=== PATIENT | female | born 1975 | race Hispanic/Latino ===

== ENCOUNTER 2020-05-31 06:50 | Day surgery (SDC) | payer BC ==
[2020-05-30 15:24] VITALS: BP 157/76
[2020-05-30 15:24] LABS: BASOPHILS % (AUTO) 0.6 % (0.0-5.0); EOSINOPHILS % (AUTO) 2.6 % (0.0-8.0); HEMATOCRIT 32.1 % (36-48); LYMPHOCYTES % (AUTO) 21.9 % (21.0-51.0); MEAN CORPUSCULAR HEMOGLOBIN 23.7 pg (27.0-33.0); MEAN CORPUSCULAR HGB CONC 30.2 g/dL (32.0-36.0); MEAN CORPUSCULAR VOLUME 78.5 fL (79-99); NEUTROPHILS % (AUTO) 67.7 % (40.0-77.0); PLATELET COUNT (AUTO) 258 K/uL (130-400); RED BLOOD CELL COUNT(AUTO) 4.09 MIL/uL (4.00-5.50); RED CELL DISTRIBUTION WIDTH 18.2 % (11.0-15.5); WHITE BLOOD COUNT (AUTO) 8.2 K/uL (4.8-10.8)
[2020-05-31] VITALS (16 sets, daily range): BP systolic 90–124; BP diastolic 54–75
[~2020-05-31] VITALS: Ht 157.5 cm; Wt 79.1 kg
[~2020-05-31 06:50] MED LIST: CEFAZOLIN SODIUM 1 GM VIAL IVP SCH; FERR-82 PO; LACTATED RINGERS 1000ML 1,000 ML IV SCH; RIVA20TA PO
[2020-05-31] MEDS ORDERED: CALDOLOR 800MG+NS 250ML 250 ML IV SCH (07:15)
[2020-05-31] MEDS ORDERED: ERGO500014 PO ×2 (08:37)
[2020-05-31] MEDS ORDERED: ESCI20TA36 PO ×2 (08:37)
[2020-05-31] MEDS ORDERED: FOLIC ACID PO ×2 (08:37)
[2020-05-31] MEDS ORDERED: LIDOCAINE PF 2% 5ML ABBOJECT ONE (09:05)
[2020-05-31] MEDS ORDERED: DEXAMETHASONE SOD PHOSPHATE 10MG/ML 1ML VIAL ONE (09:05)
[2020-05-31] MEDS ORDERED: SUCCINYLCHOLINE 200MG/10ML SYR ONE (09:05)
[2020-05-31] MEDS ORDERED: GLYCOPYRROLATE 1 MG/5 ML SYRINGE ONE (09:06)
[2020-05-31] MEDS ORDERED: MIDAZOLAM HCL 1 MG/ML 2ML VIAL ONE (09:06)
[2020-05-31] MEDS ORDERED: PROPOFOL 10 MG/ML 20ML VIAL IV ONE (09:06)
[2020-05-31] MEDS ORDERED: ROCURONIUM 10MG/1ML SYR 10 MG/ML ML ONE (09:07)
[2020-05-31] MEDS ORDERED: NEOSTIGMINE 5MG/5ML SYR IV ONE (09:07)
[2020-05-31] MEDS ORDERED: ONDANSETRON HCL 4 MG/2 ML VIAL ONE (09:07)
[2020-05-31] MEDS ORDERED: FENTANYL CITRATE PF 50 MCG/1 ML 2ML VIAL ONE ×2 (09:10→10:13)
[2020-05-31] MEDS ORDERED: ACETAMINOPHEN-CODEINE 300/30MG TAB ONE (12:32)
== END 2020-05-31 12:45 | disposition home or self-care (01) ==
LOC: DAH 06:50
PROVIDERS: ATTEND Obstetrics & Gynecology
DX: N92.1 Excessive and frequent menstruation with irregular cycle (principal); D50.0 Iron deficiency anemia secondary to blood loss (chronic); N81.4 Uterovaginal prolapse, unspecified; E66.9 Obesity, unspecified; Z86.73 Personal history of transient ischemic attack (TIA), and cerebral infarction without residual deficits; Z98.51 Tubal ligation status; Z68.32 Body mass index [BMI] 32.0-32.9, adult
CPT/HCPCS: 36415; 58563; 85025; 86850; 86900; 86901; A4215; A4221; A4222; A4223; A4351; A4355; A4663; A6260; J0330; J0690; J1100; J1741; J2001; J2250; J2405; J2704; J2710; J3010 ×2; J3490; J7030

== ENCOUNTER 2020-06-06 10:25 | Emergency (ER) | payer BC ==
[~2020-06-06 10:25] MED LIST changes: -CEFAZOLIN SODIUM 1 GM VIAL IVP SCH; +ERGO500014 PO; +ESCI20TA36 PO; +FOLIC ACID PO; -LACTATED RINGERS 1000ML 1,000 ML IV SCH
[2020-06-06 11:13] LABS: BASOPHILS % (AUTO) 0.7 % (0.0-5.0); EOSINOPHILS % (AUTO) 2.5 % (0.0-8.0); HEMATOCRIT 34.3 % (36-48); LYMPHOCYTES % (AUTO) 25.4 % (21.0-51.0); MEAN CORPUSCULAR HEMOGLOBIN 23.9 pg (27.0-33.0); MEAN CORPUSCULAR HGB CONC 30.9 g/dL (32.0-36.0); MEAN CORPUSCULAR VOLUME 77.3 fL (79-99); MONOCYTES % (AUTO) 14.2 % (3.0-13.0); NEUTROPHILS % (AUTO) 56.8 % (40.0-77.0); PLATELET COUNT (AUTO) 237 K/uL (130-400); RED BLOOD CELL COUNT(AUTO) 4.44 MIL/uL (4.00-5.50); RED CELL DISTRIBUTION WIDTH 18.4 % (11.0-15.5); WHITE BLOOD COUNT (AUTO) 5.6 K/uL (4.8-10.8)
[2020-06-06 11:14] LABS: APPEARANCE,URINE Clear (CLEAR); BILIRUBIN,URINE Negative (NEGATIVE); COLOR,URINE Yellow (YELLOW); GLUCOSE, URINE (UA) Negative (NEGATIVE); KETONES,URINE Negative (NEGATIVE); LEUKOCYTE ESTERASE ,URINE Trace (NEGATIVE); NITRATE,URINE Negative (NEGATIVE); OCCULT BLOOD,URINE Large (NEGATIVE); PROTEIN,URINE Negative (NEGATIVE); UROBILINOGEN,URINE 0.2 mg/dL (0.2-1.0)
[2020-06-06 11:23] LABS: CREATININE 0.6 mg/dL (0.5-1.5); POTASSIUM 3.7 mmol/L (3.5-5.1)
[2020-06-06 11:27] LABS: ALBUMIN 3.8 g/dL (3.5-5.0); BILIRUBIN,TOTAL 0.1 mg/dL (0.2-1.0); TOTAL PROTEIN, SERUM 8.8 g/dL (6.0-8.3)
[2020-06-06 11:32] LABS: BACTERIA,URINE Rare /HPF (None Seen); SQUAMOUS EPITHELIAL CELL,UR Rare /HPF (0-2); WBC,URINE 0-1 /HPF (0-1)
[2020-06-06] MEDS ORDERED: DIATR MEGLU/DIATRIZOATE SODIUM 30 ML BOTTLE ONE (14:39)
[2020-06-06] MEDS ORDERED: IOHEXOL-350 75 ML VIAL IV ONE (14:39)
[2020-06-06 18:57] LABS: RAPID GROUP A STREP NEGATIVE (NEGATIVE)
== END 2020-06-06 19:20 | disposition home or self-care (01) ==
LOC: EDH 10:25
DX: R50.9 Fever, unspecified (principal); R10.9 Unspecified abdominal pain; N83.299 Other ovarian cyst, unspecified side; Z20.828 Contact with and (suspected) exposure to other viral communicable diseases
CPT/HCPCS: 36415; 74178; 80053; 81001; 83605; 83690; 85025; 87040 ×2; 87426; 87804 ×2; 87880; 93005; 99285; Q9963; Q9967; U0003

== ENCOUNTER → 2020-08-02 | Outpatient (CLI) | payer BC ==
[~2020-08-02] MED LIST changes: -ESCI20TA36 PO; +ESCI20TA54 PO
== END | disposition home or self-care (01) ==
LOC: RAH 08:12
PROVIDERS: ATTEND Internal Medicine Cardiovascular Disease
DX: I67.9 Cerebrovascular disease, unspecified (principal)
CPT/HCPCS: 93356; C8929